=== PATIENT | female | born 1935 | race Hispanic/Latino ===

== ENCOUNTER 2021-03-19 09:37 | Inpatient (IN) | payer OTHER, MEDICARE ==
[2021-03-19] VITALS (8 sets, daily range): BP systolic 110–145; BP diastolic 49–95
[~2021-03-19] VITALS: Ht 149.9 cm; Wt 74.4 kg
[2021-03-19 09:56] LABS: HEMATOCRIT 27.7 % (36-48); MEAN CORPUSCULAR HEMOGLOBIN 27.5 pg (27.0-33.0); MEAN CORPUSCULAR HGB CONC 30.7 g/dL (32.0-36.0); MEAN CORPUSCULAR VOLUME 89.6 fL (79-99); PLATELET COUNT (AUTO) 494 K/uL (130-400); RED BLOOD CELL COUNT(AUTO) 3.09 MIL/uL (4.00-5.50); WHITE BLOOD COUNT (AUTO) 12.6 K/uL (4.8-10.8)
[2021-03-19] MEDS ORDERED: 0.9%NACL 1000ML 1,000 ML IV ONE ×2 (10:00→12:00)
[2021-03-19] MEDS ORDERED: KETOROLAC 30MG VIAL (30MG/ML) IVP ONE (10:00)
[2021-03-19 10:05] LABS: CREATININE 6.6 mg/dL (0.5-1.5); POTASSIUM 5.3 mmol/L (3.5-5.1)
[2021-03-19 10:10] LABS: ALBUMIN 2.3 g/dL (3.5-5.0); BILIRUBIN,TOTAL 0.3 mg/dL (0.2-1.0)
[2021-03-19 10:43] LABS: APPEARANCE,URINE Turbid (CLEAR); BILIRUBIN,URINE Negative (NEGATIVE); COLOR,URINE Yellow (YELLOW); GLUCOSE, URINE (UA) 250 mg/dL (NEGATIVE); KETONES,URINE Trace mg/dL (NEGATIVE); LEUKOCYTE ESTERASE ,URINE Trace (NEGATIVE); NITRATE,URINE Negative (NEGATIVE); OCCULT BLOOD,URINE Trace (NEGATIVE); PROTEIN,URINE 300 mg/dL (NEGATIVE); UROBILINOGEN,URINE 0.2 mg/dL (0.2-1.0)
[2021-03-19 11:02] LABS: BACTERIA,URINE Few /HPF (None Seen); RBC,URINE 0-1 /HPF (0-1); WBC,URINE 0-1 /HPF (0-1)
[2021-03-19] MEDS ORDERED: ONDANSETRON 4MG INJ IVP PRN (11:30)
[2021-03-19] MEDS ORDERED: LACTULOSE 20 GM/30 ML UDCUP PO PRN (11:30)
[2021-03-19] MEDS ORDERED: KAYEXALATE 15GM/60ML PO ONE (11:30)
[2021-03-19] MEDS ORDERED: ACETAMINOPHEN 325 MG TAB PO PRN (11:30)
[2021-03-19] MEDS: INSULIN HUMULIN R 100 UNIT/ML 3ML SQ SCH ×3 (11:30→20:27)
[2021-03-19] MEDS ORDERED: ALBUTEROL 0.083% 2.5 MG/3 ML INH IH PRN (11:30)
[2021-03-19] MEDS ORDERED: 0.9%NACL 1000ML 1,000 ML IV SCH (12:00)
[2021-03-19 12:28] LABS: LYMPHOCYTES % (MANUAL) 15 % (22-44); MONOCYTES % (MANUAL) 3 % (2-9); SEGMENTED NEUTROPHILS % 82 % (40-70)
[2021-03-19 12:29] LABS: MAN.DIFF COMMENT-IMPRESSION MANUAL DIFFERENTIAL; PLATELET MORPHOLOGY COMMENT SLIGHT INCREASED
[2021-03-19] MEDS: CEFTRIAXONE 1G VIAL IVP SCH ×2 (12:30→17:45)
[2021-03-19] MEDS ORDERED: NOREPINEPHRIN 4MG/NS 250ML 250 ML IV ONE (14:10)
[2021-03-19] MEDS: SODIUM BICARB 8.4% 50ML SYRING 150 MEQ in DEXTROSE 5%-WATER 1,000 ML IVP SCH (14:17)
[2021-03-19] MEDS ORDERED: NOREPINEPHRIN 4MG/NS 250ML 250 ML IV SCH (14:30)
[2021-03-19] MEDS ORDERED: SODIUM BICARB 8.4% 50ML SYRING 150 MEQ in DEXTROSE 5%-WATER 1,000 ML IVP SCH (15:00)
[2021-03-19] MEDS ORDERED: SODIUM BICARB 8.4% 50ML SYRINGE IVP STA (15:16)
[2021-03-19] MEDS ORDERED: SODIUM BICARB 50MEQ 50ML VIAL 100 ML ONE (15:40)
[2021-03-19] MEDS: HEPARIN 5,000 UNIT VIAL SQ SCH (20:06)
[2021-03-20] VITALS (24 sets, daily range): BP systolic 86–137; BP diastolic 37–72
[2021-03-20] MEDS: SODIUM BICARB 8.4% 50ML SYRING 150 MEQ in DEXTROSE 5%-WATER 1,000 ML IVP SCH (00:47)
[2021-03-20 03:37] LABS: BASOPHILS % (AUTO) 0.1 % (0.0-5.0); EOSINOPHILS % (AUTO) 0.1 % (0.0-8.0); HEMATOCRIT 22.3 % (36-48); LYMPHOCYTES % (AUTO) 10.7 % (21.0-51.0); MEAN CORPUSCULAR HEMOGLOBIN 27.3 pg (27.0-33.0); MEAN CORPUSCULAR HGB CONC 31.8 g/dL (32.0-36.0); MEAN CORPUSCULAR VOLUME 85.8 fL (79-99); MONOCYTES % (AUTO) 7.3 % (3.0-13.0); NEUTROPHILS % (AUTO) 81.6 % (40.0-77.0); PLATELET COUNT (AUTO) 382 K/uL (130-400); RED CELL DISTRIBUTION WIDTH 14.7 % (11.0-15.5); WHITE BLOOD COUNT (AUTO) 8.8 K/uL (4.8-10.8)
[2021-03-20 04:02] LABS: ALBUMIN 1.8 g/dL (3.5-5.0); BILIRUBIN,TOTAL 0.2 mg/dL (0.2-1.0); CREATININE 6.5 mg/dL (0.5-1.5); PHOSPHORUS 6.4 mg/dL (2.5-4.9); POTASSIUM 3.8 mmol/L (3.5-5.1); THYROID STIMULATING HORMONE 0.85 uIU/mL (0.36-3.74); TOTAL PROTEIN, SERUM 5.6 g/dL (6.0-8.3)
[2021-03-20 04:04] LABS: % IRON SATURATION 23.6 % (22-44)
[2021-03-20] MEDS: INSULIN HUMULIN R 100 UNIT/ML 3ML SQ SCH ×4 (06:07→21:31)
[2021-03-20] MEDS: HEPARIN 5,000 UNIT VIAL SQ SCH ×2 (06:18→18:36)
[2021-03-20] MEDS: PANTOPRAZOLE 40 MG/VIAL IVP SCH (08:19)
[2021-03-20] MEDS ORDERED: ENOXAPARIN SODIUM 30 MG/0.3 ML SQ SCH (09:00)
[2021-03-20] MEDS ORDERED: PHENYLEPHRINE HCL 50 MG in 0.9% NACL 250ML 245 ML IV PRN (10:30)
[2021-03-20] MEDS ORDERED: VASOPRESSIN 20 UNITS in 0.9%NACL 100ML 99 ML IV PRN (10:30)
[2021-03-20] MEDS: 1/2 NS 1000ML 1,000 ML IV SCH (11:30)
[2021-03-20] MEDS ORDERED: EPOETIN ALFA-EPBX (ESRD) 10,000 UNIT/ML VIAL SQ SCH (11:30)
[2021-03-20] MEDS ORDERED: SOD FERRIC GLUC COMPLEX/SUC 125 MG in 0.9%NACL 100ML 100 ML IV SCH (11:30)
[2021-03-20] MEDS: CEFTRIAXONE 1G VIAL IVP SCH (13:13)
[2021-03-21] VITALS (8 sets, daily range): BP systolic 97–146; BP diastolic 45–63
[2021-03-21] MEDS: 1/2 NS 1000ML 1,000 ML IV SCH ×2 (00:04→16:26)
[2021-03-21 03:37] LABS: BASOPHILS % (AUTO) 0.3 % (0.0-5.0); EOSINOPHILS % (AUTO) 0.5 % (0.0-8.0); HEMATOCRIT 23.8 % (36-48); LYMPHOCYTES % (AUTO) 16.9 % (21.0-51.0); MEAN CORPUSCULAR HEMOGLOBIN 27.9 pg (27.0-33.0); MEAN CORPUSCULAR HGB CONC 31.9 g/dL (32.0-36.0); MEAN CORPUSCULAR VOLUME 87.5 fL (79-99); MONOCYTES % (AUTO) 7.4 % (3.0-13.0); NEUTROPHILS % (AUTO) 74.4 % (40.0-77.0); PLATELET COUNT (AUTO) 296 K/uL (130-400); RED BLOOD CELL COUNT(AUTO) 2.72 MIL/uL (4.00-5.50); RED CELL DISTRIBUTION WIDTH 14.9 % (11.0-15.5); WHITE BLOOD COUNT (AUTO) 7.6 K/uL (4.8-10.8)
[2021-03-21 03:56] LABS: ALBUMIN 1.8 g/dL (3.5-5.0); BILIRUBIN,TOTAL 0.2 mg/dL (0.2-1.0); POTASSIUM 3.2 mmol/L (3.5-5.1); TOTAL PROTEIN, SERUM 5.6 g/dL (6.0-8.3)
[2021-03-21 04:05] LABS: CREATININE 6.3 mg/dL (0.5-1.5)
[2021-03-21] MEDS: INSULIN HUMULIN R 100 UNIT/ML 3ML SQ SCH ×4 (06:02→21:03)
[2021-03-21] MEDS: HEPARIN 5,000 UNIT VIAL SQ SCH ×2 (06:18→21:07)
[2021-03-21] MEDS: PANTOPRAZOLE 40 MG/VIAL IVP SCH (08:59)
[2021-03-21] MEDS ORDERED: ROSU20TA31 PO (10:06)
[2021-03-21] MEDS ORDERED: GLIP1TAB6 PO (10:06)
[2021-03-21] MEDS ORDERED: SEMA3TAB PO (10:06)
[2021-03-21] MEDS ORDERED: DAPA10TA PO (10:06)
[2021-03-21] MEDS ORDERED: EZET10TA48 PO (10:06)
[2021-03-21] MEDS ORDERED: AEC81 PO (10:06)
[2021-03-21] MEDS ORDERED: FURO40TA5 PO (10:06)
[2021-03-21] MEDS ORDERED: ENAL10TA18 PO (10:06)
[2021-03-22] VITALS (7 sets, daily range): BP systolic 108–143; BP diastolic 48–75
[2021-03-22] MEDS: 1/2 NS 1000ML 1,000 ML IV SCH ×2 (03:19→16:50)
[2021-03-22 03:35] LABS: BASOPHILS % (AUTO) 0.3 % (0.0-5.0); HEMATOCRIT 24.2 % (36-48); LYMPHOCYTES % (AUTO) 16.1 % (21.0-51.0); MEAN CORPUSCULAR HEMOGLOBIN 27.6 pg (27.0-33.0); MEAN CORPUSCULAR HGB CONC 31.8 g/dL (32.0-36.0); MEAN CORPUSCULAR VOLUME 86.7 fL (79-99); NEUTROPHILS % (AUTO) 76.2 % (40.0-77.0); PLATELET COUNT (AUTO) 304 K/uL (130-400); RED BLOOD CELL COUNT(AUTO) 2.79 MIL/uL (4.00-5.50); RED CELL DISTRIBUTION WIDTH 14.7 % (11.0-15.5); WHITE BLOOD COUNT (AUTO) 6.8 K/uL (4.8-10.8)
[2021-03-22 03:46] LABS: POTASSIUM 2.6 mmol/L (3.5-5.1)
[2021-03-22] MEDS ORDERED: KCL 20 MEQ ERTAB PO STA (03:51)
[2021-03-22] MEDS ORDERED: MAGNESIUM 2GM PREMIX 50ML 50 ML IV STA (04:28)
[2021-03-22] MEDS ORDERED: MAGNESIUM 2GM PREMIX 50ML 50 ML IV ONE (05:30)
[2021-03-22] MEDS: HEPARIN 5,000 UNIT VIAL SQ SCH ×2 (05:34→18:30)
[2021-03-22] MEDS: INSULIN HUMULIN R 100 UNIT/ML 3ML SQ SCH ×4 (06:38→21:59)
[2021-03-22] MEDS: PANTOPRAZOLE 40 MG/VIAL IVP SCH (09:00)
[2021-03-22] MEDS: POTASSIUM CHLORIDE 10MEQ/100ML 10 MEQ/100 ML ML IV SCH (09:00)
[2021-03-22] MEDS ORDERED: KCL 20 MEQ ERTAB PO SCH (09:30)
[2021-03-22] MEDS: CEFTRIAXONE 1G VIAL IVP SCH (15:07)
[2021-03-23] VITALS: BP 110/53
[2021-03-23] MEDS: 1/2 NS 1000ML 1,000 ML IV SCH (02:31)
[2021-03-23 03:52] LABS: BASOPHILS % (AUTO) 0.2 % (0.0-5.0); EOSINOPHILS % (AUTO) 1.1 % (0.0-8.0); HEMATOCRIT 24.4 % (36-48); LYMPHOCYTES % (AUTO) 16.7 % (21.0-51.0); MEAN CORPUSCULAR HEMOGLOBIN 27.5 pg (27.0-33.0); MEAN CORPUSCULAR HGB CONC 31.1 g/dL (32.0-36.0); MEAN CORPUSCULAR VOLUME 88.4 fL (79-99); MONOCYTES % (AUTO) 8.2 % (3.0-13.0); NEUTROPHILS % (AUTO) 72.3 % (40.0-77.0); PLATELET COUNT (AUTO) 304 K/uL (130-400); RED BLOOD CELL COUNT(AUTO) 2.76 MIL/uL (4.00-5.50); RED CELL DISTRIBUTION WIDTH 14.8 % (11.0-15.5); WHITE BLOOD COUNT (AUTO) 6.1 K/uL (4.8-10.8)
[2021-03-23 04:00] VITALS: BP 134/64
[2021-03-23 04:07] LABS: CREATININE 3.9 mg/dL (0.5-1.5); PHOSPHORUS 3.8 mg/dL (2.5-4.9); POTASSIUM 3.8 mmol/L (3.5-5.1)
[2021-03-23] MEDS: HEPARIN 5,000 UNIT VIAL SQ SCH (06:04)
[2021-03-23] MEDS: INSULIN HUMULIN R 100 UNIT/ML 3ML SQ SCH ×2 (06:56→12:09)
[2021-03-23] MEDS: POTASSIUM CHLORIDE 10MEQ/100ML 10 MEQ/100 ML ML IV SCH (06:57)
[2021-03-23 08:00] VITALS: BP 150/75
[2021-03-23] MEDS: PANTOPRAZOLE 40 MG/VIAL IVP SCH (09:19)
[2021-03-23] MEDS ORDERED: KCL 20 MEQ ERTAB PO ONE (11:30)
[2021-03-23 12:00] VITALS: BP 134/68
[2021-03-23] MEDS ORDERED: PHARMACY COMMUNICATION MISC SCH (12:00)
[2021-03-23] MEDS ORDERED: SOD FERRIC GLUC COMPLEX/SUC 125 MG in 0.9%NACL 100ML 100 ML IV SCH (12:30)
[2021-03-23] MEDS: CEFTRIAXONE 1G VIAL IVP SCH (13:00)
[2021-03-23] MEDS ORDERED: DOCU-116 PO (13:17)
[2021-03-23] MEDS ORDERED: FOLI0.8T2 PO (13:17)
[2021-03-23] MEDS ORDERED: FERR-72 PO (13:17)
[2021-03-23] MEDS ORDERED: AMOX-426 PO (13:17)
== END 2021-03-23 15:15 | disposition hospice, home (50) | DRG 872 ==
LOC: EDH 09:37 → EDHIP 11:58 → OBSVTOIN 11:58 → 2DH 16:30 → 4BH 03-22 10:50
PROVIDERS: ADMIT Internal Medicine Critical Care Medicine; ATTEND Internal Medicine Critical Care Medicine
DX: A41.9 Sepsis, unspecified organism (principal); N39.0 Urinary tract infection, site not specified; N17.9 Acute kidney failure, unspecified; E87.5 Hyperkalemia; E88.09 Other disorders of plasma-protein metabolism, not elsewhere classified; E86.0 Dehydration; R62.7 Adult failure to thrive; E11.51 Type 2 diabetes mellitus with diabetic peripheral angiopathy without gangrene; Z66 Do not resuscitate; I12.9 Hypertensive chronic kidney disease with stage 1 through stage 4 chronic kidney disease, or unspecified chronic kidney disease; N18.9 Chronic kidney disease, unspecified; E11.22 Type 2 diabetes mellitus with diabetic chronic kidney disease; D63.8 Anemia in other chronic diseases classified elsewhere; E87.8 Other disorders of electrolyte and fluid balance, not elsewhere classified; R53.81 Other malaise; Z68.33 Body mass index [BMI] 33.0-33.9, adult
CPT/HCPCS: 36415; 71045; 74176; 80048; 80053; 81001; 82533; 82948; 83540; 83550; 83735; 84100; 84132; 84145; 84443; 85025; 87088; 93005; 97039; C9113; G0378; J0696; J1644; J1815; J1885; J2916; J3475; J3490; J7030; J7070